=== PATIENT | female | born 1965 | race American Indian/Alaskan Native ===

== ENCOUNTER 2017-07-07 16:03 | Emergency (ER) | payer MEDICAID ==
[~2017-07-07] VITALS: Ht 152.4 cm; Wt 115.0 kg
[~2017-07-07 16:03] MED LIST: ACET325T14; AMLO5TAB4 PO; ASPI-621 PO; ASPI325T17; CARV6.252 PO; CHOL400T38 PO; EZET10TA3 PO; FAMO-79 PO; HYDR-3240 PO; HYDR-3307 PO; HYDR25TA11; HYDR25TA6 PO; IBUP-1484 PO; KETO5DRO77 PO; LOSA50TA6 PO; LOVA10TA PO; LOVA20TA2 PO; METH750T2 PO; NEW BP MED; OMEG1CAP6 PO; PIOG15TA22 PO; PIOG30TA4 PO; PREG75CA PO; SIMV20TA PO; TRAM50TA2 PO; VITA D3; [UNRECOGNIZED DRUG - CODE]
[2017-07-07] MEDS ORDERED: OXYcodone/APAP 5/325MG TABLET PO ONE (17:00)
[2017-07-07] MEDS ORDERED: OXYcodone/APAP 5/325MG TABLET ONE (17:29)
[2017-07-07 17:40] VITALS: BP 152/80
== END 2017-07-07 17:39 | disposition home or self-care (01) ==
LOC: ED 17:32
DX: M79.662 Pain in left lower leg (principal); I10 Essential (primary) hypertension; E78.5 Hyperlipidemia, unspecified; M79.7 Fibromyalgia; E11.21 Type 2 diabetes mellitus with diabetic nephropathy; Z86.73 Personal history of transient ischemic attack (TIA), and cerebral infarction without residual deficits
CPT/HCPCS: 99284